=== PATIENT | female | born 1980 | race African-American/Black ===

== ENCOUNTER 2024-03-11 14:23 | Emergency (ER) | payer MEDICAID, OTHER ==
[~2024-03-11] VITALS: Ht 152.4 cm; Wt 56.8 kg
[~2024-03-11 14:23] MED LIST: QUET150T2
[2024-03-11] MEDS ORDERED: CARV6 PO (14:40)
[2024-03-11] MEDS ORDERED: SPIR50TA27 PO (14:40)
[2024-03-11] MEDS ORDERED: BUME1TAB50 PO (14:40)
[2024-03-11] MEDS ORDERED: ALBU18HF12 IH (14:40)
[2024-03-11] MEDS ORDERED: RIVA10TA PO (14:40)
[2024-03-11 14:41] VITALS: BP 108/76; PULSE 60; RESP 18; TEMP 98; O2SAT 95
[2024-03-11] MEDS: LIDOCAINE 1% 10 ML VIAL SQ ONE (16:30)
[2024-03-11] MEDS ORDERED: DOXY-354 PO (17:01)
[2024-03-11] MEDS: DOXYCYCLINE HYCLATE 100 MG TABLET PO ONE (17:08)
== END 2024-03-11 17:38 | disposition home or self-care (01) ==
LOC: EMS 14:23
DX: L03.012 Cellulitis of left finger (principal); I50.9 Heart failure, unspecified; J44.89 Other specified chronic obstructive pulmonary disease; F17.210 Nicotine dependence, cigarettes, uncomplicated; Z79.01 Long term (current) use of anticoagulants; Z79.899 Other long term (current) drug therapy; Z88.0 Allergy status to penicillin; Z88.1 Allergy status to other antibiotic agents
CPT/HCPCS: 99283; 10060; 99406; J3490

== ENCOUNTER 2024-05-05 00:05 | Emergency (ER) | payer MEDICAID ==
[~2024-05-05 00:05] MED LIST changes: +ALBU18HF12 IH; +BUME1TAB50 PO; +CARV6.25 PO; +DOXY-354 PO; -QUET150T2; +RIVA10TA PO; +SPIR50TA27 PO
[2024-05-05 23:55] VITALS: PULSE 156; RESP 24; O2SAT 99
[2024-05-06 00:55] VITALS: PULSE 109; RESP 24; O2SAT 99
== END 2024-05-06 | disposition left against medical advice (07) ==
LOC: EMS 05-06 00:05
DX: Z53.21 Procedure and treatment not carried out due to patient leaving prior to being seen by health care provider (principal)
CPT/HCPCS: 84703